=== PATIENT | male | born 1940 | race Caucasian/White ===

== ENCOUNTER 2024-06-17 11:18 | Emergency (ER) | payer MEDICARE ==
[~2024-06-17] VITALS: Ht 172.7 cm; Wt 72.6 kg
[2024-06-17 11:38] LABS: BASOPHILS 0.9 % (0-2); EOSINOPHILS 2.3 % (0-6); HEMATOCRIT 38.9 % (35.0-50.0); HEMOGLOBIN 13.2 g/dL (12.0-18.0); LYMPHOCYTES 15.2 % (24-44); MCH 29.3 (27-36); MCHC 33.9 g/dl (30-36); MCV 86.4 fl (81-99); MONOCYTES 10.3 % (0-12); NEUTROPHILS 71.3 % (39-80); PLATELET COUNT 183 K/uL (140-440); RBC 4.51 M/ul (4.3-5.7); RDW 13.7 (10.5-15.0)
[2024-06-17 11:54] LABS: ALBUMIN 3.4 g/dL (3.4-5.0); ALBUMIN/GLOBULIN RATIO 1.21 (1.1-2.4); ALCOHOL, MEDICAL <3 ng/dL (<3); ALKALINE PHOSPHATASE 101 U/L (46-116); ALT (SGPT) 18 U/L (14-59); ANION GAP 13.7 (7-21); AST (SGOT) 22 U/L (15-37); BUN/CREATININE RATIO 18.94 (6.0-28.6); CALCIUM 8.7 mg/dL (8.5-10.1); CARBON DIOXIDE 30 mmol/L (21-32); CHLORIDE 101 mmol/L (98-107); CREATININE, SERUM 0.95 mg/dL (0.70-1.30); GLOMERULAR FILTRATION RATE,EST 80 mL/min (>60); POTASSIUM 3.7 mmol/L (3.5-5.1); PROTEIN, TOTAL 6.2 g/dL (6.4-8.2); UREA NITROGEN 18 mg/dL (7-18)
[2024-06-17 13:11] VITALS: BP 113/64
== END 2024-06-17 13:21 | disposition home or self-care (01) ==
LOC: ED 11:18
PROVIDERS: Emergency Medicine
DX: S00.93XA Contusion of unspecified part of head, initial encounter (principal); W18.30XA Fall on same level, unspecified, initial encounter
CPT/HCPCS: 36415; 70450; 80053; 85025; 99284-25; G0480